=== PATIENT | female | born 1980 | race Caucasian/White ===

== ENCOUNTER 2016-09-03 08:58 | Emergency (ER) | payer MEDICAID ==
[2016-09-03 09:15] VITALS: O2SAT 98
--- NOTE | 2016-09-03 09:57 | ERPHSYRPT ---
- History of Present Illness Time Seen by Provider: 09/03/16 09:24 Source: patient, family () Patient Subjective Stated Complaint: PT REPORTS POISON OAK ON BILATERAL ARMS- SPREAD TO BLISTERS ET REDNESS TO BILATERAL [id number] HIP-DENIES FEVER-PT IS 16 Triage Nursing Assessment: BLISTERED AREAS WITH WEEPING ET DRAINAGE NOTED TO BILATERAL [id number] NOTED TO LEFT HIP WITH NO BLISTERS OR DRAINAGE NOTED AT THSI TIME-RESP EASY ET NONLABORED Physician History: CC: rash Hx: 36 y/o at 14 weeks gestation. She is a patient of Dr Li. She noted itching rash which started one week ago. It was on the arms, left face, left chest, and some on buttock. She had no new medications. The only possible known exposure was that of poison jose or oak on family clothes. The rash worsened so she went to [facility] [place] told her to use topical OTC meds as she was . She used an unknown cream from family member. The rash is now burning. It has transitioned to blistering and has some yellow crusted drainage, especially from the left arm. No fever or chills. No vaginal bleeding or discharge. She reports a small area inside left lower mouth which was sore but now resolved. She had a normal prior without complications. Quality: burning, itchy Severity: severe Allergies/Adverse Reactions: peanut Allergy (Severe, Verified 09/03/16 09:15) Home Medications: Vits W-Ca,Fe,FA(<1Mg) [] 1 each PO DAILY 09/03/16 [History] Hx Tetanus, Diphtheria Vaccination/Date Given: No Hx Influenza Vaccination/Date Given: No Hx Pneumococcal Vaccination/Date Given: No Immunizations Up to Date: Yes - Review of Systems Constitutional: No Fever, No Chills Eyes: No Symptoms Ears, Nose, & Throat: Mouth Pain (gone now) Respiratory: No Cough, No Dyspnea Cardiac: No Chest Pain Abdominal/Gastrointestinal: Nausea, No Abdominal Pain, No Vomiting Genitourinary Symptoms: Dysuria Musculoskeletal: No Back Pain, No Neck Pain, No Injury Skin: Rash Neurological: No Headache All Other Systems: Reviewed and Negative - Past Medical History Pertinent Past Medical History: No - Past Surgical History Past Surgical History: No - Social History Smoking Status: Never smoker Exposure to second hand smoke: No Drug Use: none Patient Lives Alone: No ( here with ) - Nursing Vital Signs Nursing Vital Signs: Initial Vital Signs Temperature 98.0 F 09/03/16 09:09 Pulse Rate 70 09/03/16 09:09 Respiratory Rate 20 09/03/16 09:09 Blood Pressure 103/58 09/03/16 09:09 O2 Sat by Pulse Oximetry 97 09/03/16 09:09 Pain Scale Pain Intensity 0 - Physical Exam General Appearance: alert Eye Exam: PERRL/EOMI Ears, Nose, Throat Exam: normal ENT inspection, moist mucous membranes Neck Exam: normal inspection, non-tender, supple Respiratory Exam: normal breath sounds, lungs clear Cardiovascular Exam: regular rate/rhythm Gastrointestinal/Abdomen Exam: soft, No tenderness, No distention Pelvic Exam: not done Back Exam: normal inspection Extremity Exam: other (some swelling underlying rash on left arm) Neurologic Exam: alert, oriented x 3, cooperative, sensation nml, No motor deficits Skin Exam: warm, dry, rash (blistering rash on erythematous base with some yellow crusted drainage) SpO2: 98 Oxygen Delivery: Room Air - Course Nursing assessment & vital signs reviewed: Yes Ordered Tests: Active Orders 24 hr Category Date Time Status Clean Catch Urine Specimen STAT Care 09/03/16 09:35 Active Heart Tones-ED STAT Care 09/03/16 09:37 Active IV Insertion STAT Care 09/03/16 09:35 Active CBC W DIFF Stat Lab 09/03/16 09:57 Completed CMP Stat Lab 09/03/16 09:57 Completed Erythrocyte Sedimentation Rate Stat Lab 09/03/16 09:57 Completed UA W/ MICROSCOPIC Stat Lab 09/03/16 09:57 Completed Medication Summary Discontinued Medications Generic Name Dose Route Start Last Admin Trade Name Freq PRN Reason Stop Dose Admin Clindamycin HCl 300 mg 09/03/16 10:14 09/03/16 10:29 Cleocin 150 Mg Capsule PO 09/03/16 10:15 300 mg STAT ONE Administration Methylprednisolone Sodium Succinate 125 mg 09/03/16 10:17 09/03/16 10:29 Solu-Medrol 125 Mg IV 09/03/16 10:18 125 mg STAT ONE Administration Methylprednisolone Sodium Succinate Confirm 09/03/16 10:24 Solu-Medrol 125 Mg Administered 09/03/16 10:25 Dose 125 mg .ROUTE .STK-MED ONE Lab/Rad Data: Laboratory Result Diagrams 09/03/16 09:57 09/03/16 09:57 Laboratory Results 09/03/16 09/03/16 09/03/16 Range/Units 09:57 09:57 09:57 WBC 11.1 H (4.0-10.5) K/mm3 RBC 4.05 L (4.1-5.4) M/mm3 Hgb 12.1 (12.0-16.0) gm/dl Hct 35.7 (35-47) % MCV 88.1 (78-100) fl MCH 29.8 (26-32) pg MCHC 33.9 (32-36) g/dl RDW 13.3 (11.5-14.0) % Plt Count 336 (150-450) K/mm3 MPV 9.7 H (6-9.5) fl Gran % 68.4 H (36.0-66.0) % Lymphocytes % 21.4 L (24.0-44.0) % Monocytes % 6.6 (0.0-12.0) % Eosinophils % 3.5 (0.00-5.0) % Basophils % 0.1 (0.0-0.4) % Basophils # 0.01 (0-0.4) ESR 17 (0-20) mm/hr Sodium 139 (136-145) mEq/L Potassium 3.3 L (3.5-5.1) mEq/L Chloride 103 (98-107) mEq/L Carbon Dioxide 22.4 (21-32) mEq/L Anion Gap 17.2 H (5-15) MEQ/L BUN 6 L (9-20) mg/dL Creatinine 0.70 (0.55-1.30) mg/dl Estimated GFR > 60 ML/MIN Glucose 131 H (70-110) MG/DL Calcium 8.9 (8.5-10.1) mg/dL Total Bilirubin 0.20 (0.2-1.0) mg/dL AST 20 (15-37) U/L ALT 16 (12-78) U/L Alkaline Phosphatase 50 (46-116) U/L Serum Total Protein 6.4 (6.4-8.2) gm/dL Albumin 3.0 L (3.4-5.0) g/dL Ur Collection Type Urine Color (YELLOW) Urine Appearance (CLEAR) Urine pH (5-6) Ur Specific Hamilton (1.005-1.025) Urine Protein (Negative) Urine Ketones (NEGATIVE) Urine Blood (0-5) Mayco/ul Urine Nitrite (NEGATIVE) Urine Bilirubin (NEGATIVE) Urine Urobilinogen (0-1) mg/dL Ur Leukocyte Esterase (NEGATIVE) Urine Microscopic RBC (0-2) /HPF Urine Microscopic WBC (0-5) /HPF Ur Epithelial Cells (FEW) /HPF Urine Bacteria (NEGATIVE) /HPF Urine Mucus (NEGATIVE) /HPF Urine Glucose (NEGATIVE) mg/dL Specimen Received 09/03/16 Range/Units 09:57 WBC (4.0-10.5) K/mm3 RBC (4.1-5.4) M/mm3 Hgb (12.0-16.0) gm/dl Hct (35-47) % MCV (78-100) fl MCH (26-32) pg MCHC (32-36) g/dl RDW (11.5-14.0) % Plt Count (150-450) K/mm3 MPV (6-9.5) fl Gran % (36.0-66.0) % Lymphocytes % (24.0-44.0) % Monocytes % (0.0-12.0) % Eosinophils % (0.00-5.0) % Basophils % (0.0-0.4) % Basophils # (0-0.4) ESR (0-20) mm/hr Sodium (136-145) mEq/L Potassium (3.5-5.1) mEq/L Chloride (98-107) mEq/L Carbon Dioxide (21-32) mEq/L Anion Gap (5-15) MEQ/L BUN (9-20) mg/dL Creatinine (0.55-1.30) mg/dl Estimated GFR ML/MIN Glucose (70-110) MG/DL Calcium (8.5-10.1) mg/dL Total Bilirubin (0.2-1.0) mg/dL AST (15-37) U/L ALT (12-78) U/L Alkaline Phosphatase (46-116) U/L Serum Total Protein (6.4-8.2) gm/dL Albumin (3.4-5.0) g/dL Ur Collection Type CLEAN CATCH Urine Color YELLOW (YELLOW) Urine Appearance CLEAR (CLEAR) Urine pH 6.0 (5-6) Ur Specific Hamilton 1.010 (1.005-1.025) Urine Protein NEGATIVE (Negative) Urine Ketones NEGATIVE (NEGATIVE) Urine Blood 50 (0-5) Mayco/ul Urine Nitrite NEGATIVE (NEGATIVE) Urine Bilirubin NEGATIVE (NEGATIVE) Urine Urobilinogen NORMAL (0-1) mg/dL Ur Leukocyte Esterase NEGATIVE (NEGATIVE) Urine Microscopic RBC 2-5 (0-2) /HPF Urine Microscopic WBC 0-2 (0-5) /HPF Ur Epithelial Cells FEW (FEW) /HPF Urine Bacteria FEW (NEGATIVE) /HPF Urine Mucus SLIGHT (NEGATIVE) /HPF Urine Glucose NEGATIVE (NEGATIVE) mg/dL Specimen Received 09/03 1018 - Progress Progress Note: 09/03/16 09:57 Asked patient about tetanus vaccination history. She has not been vaccinated. Advised tetanus vaccine as she is at risk with these blistering wounds. She states she does not believe in vaccines. She understands risks of tetanus but declines vaccine. 09/03/16 10:[address] Mims who evalauted pt and agrees likely contact dermatitis , rather severe. Will give IV solu medrol, po prednisone, and abtx. Plan discussed with pt who agrees. Counseled pt/family regarding: lab results, diagnosis, need for follow-up - Departure Time of Disposition: 10:40 Departure Disposition: Home Clinical Impression: Contact dermatitis Qualifiers: Contact dermatitis type: irritant Contact dermatitis trigger: non-food plants Qualified Code(s): L24.7 - Irritant contact dermatitis due to plants, except food Condition: Fair Critical Care Time: No Referrals: RM LI [Primary Care Provider] - Instructions: Contact Dermatitis Additional Instructions: Rx prednisone. Aveeno oatmeal cool compresses. Follow up this week with Dr Li. Return for problems or concerns. RASH 1. Depending on the reason for the rash, the instructions will differ. 2. If an antibiotic has been prescribed, take it as directed until gone. 3. If anti-fungals or shampoos are prescribed, use only as directed and follow specific instructions on package container. 4. Avoid hot showers/baths, as this may increase itching. 5. Calamine lotion or Aveeno Oatmeal baths may help itching. 6. See your family physician if these signs or symptoms persist for more than four days. Prescriptions: Clindamycin HCl 1 cap PO QID #28 capsule Prednisone 10 mg [Deltasone 10 mg] 0 mg PO UD #30 tablet
[2016-09-03 09:59] LABS: BASOPHIL % 0.1 % (0.0-0.4); Eosinophil % 3.5 % (0.00-5.0); Granulocytes % 68.4 % (36.0-66.0); Lymphocytes % 21.4 % (24.0-44.0); Mean Cell Volume 88.1 fl (78-100); Mean Platelet Volume 9.7 fl (6-9.5); Monocytes % 6.6 % (0.0-12.0); Platelet Count 336 K/mm3 (150-450); Red Blood Count 4.05 M/mm3 (4.1-5.4); Red Cell Distribution Width 13.3 % (11.5-14.0); White Blood Count 11.1 K/mm3 (4.0-10.5)
[2016-09-03 10:01] LABS: Mean Corpuscular Hemoglobin 29.8 pg (26-32)
[2016-09-03] MEDS ORDERED: CLEOCIN 150 MG CAPSULE PO ONE (10:14)
[2016-09-03] MEDS ORDERED: solu-MEDROL 125 MG IV ONE (10:17)
[2016-09-03 10:18] LABS: Bilirubin NEGATIVE (NEGATIVE); Blood 50 Ery/ul (0-5); COMPLETE URINE MICROSCOPIC? YES; Collection Type CLEAN CATCH; Glucose NEGATIVE (NEGATIVE); Leukocyte Esterase NEGATIVE (NEGATIVE)
[2016-09-03 10:23] VITALS: BP 110/60; PULSE 67
[2016-09-03] MEDS ORDERED: solu-MEDROL 125 MG ONE (10:24)
[2016-09-03 10:25] LABS: ALKALINE PHOSPHATASE 50 U/L (46-116); ANION GAP 17.2 MEQ/L (5-15); BLOOD UREA NITROGEN 6 mg/dL (9-20); CHLORIDE 103 mEq/L (98-107); Carbon Dioxide 22.4 mEq/L (21-32); Glucose 131 MG/DL (70-110); Potassium 3.3 mEq/L (3.5-5.1); SGOT/AST 20 U/L (15-37); SGPT/ALT 16 U/L (12-78); SODIUM 139 mEq/L (136-145); Total Protein 6.4 gm/dL (6.4-8.2)
[2016-09-03 10:27] LABS: ADD URINE CULTURE? NO (NO); Bacteria FEW /HPF (NEGATIVE); Epithelial Cells FEW /HPF (FEW); Mucus SLIGHT /HPF (NEGATIVE); WBC 0-2 /HPF (0-5)
== END 2016-09-03 10:54 | disposition home or self-care (01) ==
LOC: ED 08:58
DX: L24.7 Irritant contact dermatitis due to plants, except food (principal); Z33.1 Pregnant state, incidental
CPT/HCPCS: 36000; 36415; 80053; 81000; 85025; 85652; 96374; 99284; J2930; A9270-GY

== ENCOUNTER 2017-03-06 08:30 | Inpatient (IN) | payer MEDICAID ==
[2017-03-06] MEDS ORDERED: BRETHINE 1 MG/ML SQ PRN (18:16)
[2017-03-06] MEDS ORDERED: STADOL 2 MG IV PRN (18:22)
[2017-03-06] MEDS ORDERED: Phenergan 25 MG INJ IV PRN (18:22)
[2017-03-06] MEDS ORDERED: Zofran 4 MG/2 ML VIAL IV PRN (18:22)
[2017-03-06] MEDS ORDERED: Nubain 10 MG/ML IV PRN (18:22)
[2017-03-06] MEDS ORDERED: Cervidil 10 MG VAG SCH (18:30)
[2017-03-06 19:08] LABS: Amphetamine,Urine NEG. (NEGATIVE); Barbiturate,Urine NEG. (NEGATIVE); Benzodiazepine,Urine NEG. (NEGATIVE); Cocaine,Urine NEG. (NEGATIVE); Methadone,Urine NEG. (NEGATIVE); Opiate,Urine NEG. (NEGATIVE); PCP,Urine NEG. (NEGATIVE); THC,Urine NEG. (NEGATIVE)
[2017-03-06 19:24] LABS: Granulocyte Absolute (ANC) 7.85 (1.4-6.9); Hematocrit 33.9 % (35-47); Hemoglobin 10.8 gm/dl (12.0-16.0); Mean Cell Volume 89.7 fl (78-100); Mean Corpuscular Hgb Concent. 31.9 g/dl (32-36); Mean Platelet Volume 11.1 fl (6-9.5); Platelet Count 337 K/mm3 (150-450); Red Blood Count 3.78 M/mm3 (4.1-5.4); Red Cell Distribution Width 13.8 % (11.5-14.0); White Blood Count 11.3 K/mm3 (4.0-10.5)
[2017-03-06 19:30] LABS: Mean Corpuscular Hemoglobin 28.5 pg (26-32)
[2017-03-06 23:45] LABS: BAND 4 % (0.0-2.0); Neutrophils 75 % (36.0-66.0); Total Cells Counted 100
[2017-03-06 23:46] LABS: Lymphocytes 15 % (24-44); Monocyte 6 % (0.0-12.0); Platelet Estimate NORMAL (NORMAL)
[2017-03-07] MEDS ORDERED: PITOCIN 30 UNITS/ LR 500 ML 500 ML IV SCH ×2 (08:30→10:00)
[2017-03-07] MEDS: Lactated Ringers 1,000 ML IV SCH ×2 (08:44→11:43)
[2017-03-07] MEDS ORDERED: OB EPIDURAL NAROPIN/SUFENTANIL IN NACL EPIDURAL PRN (09:23)
[2017-03-07] MEDS ORDERED: Lactated Ringers 1,000 ML IV ONE (09:23)
[2017-03-07] MEDS ORDERED: XYLOCAINE 1% HCL 20 ML MDV IJ ONE (10:00)
[2017-03-07] MEDS ORDERED: XYLOCAINE 1% HCL 20 ML MDV ONE (15:07)
[2017-03-07] MEDS ORDERED: Ambien 10 MG PO PRN (15:51)
[2017-03-07] MEDS ORDERED: Restoril 15 MG PO PRN (15:51)
[2017-03-07] MEDS ORDERED: Dulcolax 10 MG SUPP PR PRN (15:51)
[2017-03-07] MEDS ORDERED: TUCKS TP PRN (15:51)
[2017-03-07] MEDS ORDERED: NORCO 5/325 MG PO PRN (15:51)
[2017-03-07] MEDS ORDERED: LANSINOH 40 GM TOP PRN (15:51)
[2017-03-07] MEDS ORDERED: Dermoplast Spray TP PRN (15:51)
[2017-03-07] MEDS ORDERED: CORTISONE 1% CREAM TP PRN (15:51)
[2017-03-07] MEDS: Colace 100 MG PO SCH (22:20)
[2017-03-08] MEDS: TYLENOL EXTRA STRENGTH 500 MG PO PRN ×3 (00:35→16:21)
[2017-03-08] MEDS ORDERED: TYLENOL EXTRA STRENGTH 500 MG PO PRN (05:23)
[2017-03-08 05:33] LABS: BASOPHIL % 0.1 % (0.0-0.4); Basophil (Absolute #) 0.01 (0-0.4); Eosinophil % 0.8 % (0.00-5.0); Eosinophil (Absolute #) 0.11 (0-0.5); Granulocyte Absolute (ANC) 9.01 (1.4-6.9); Granulocytes % 67.7 % (36.0-66.0); Hematocrit 31.6 % (35-47); Hemoglobin 10.1 gm/dl (12.0-16.0); Lymphocyte (Absolute #) 2.65 (1.0-4.6); Lymphocytes % 19.9 % (24.0-44.0); Mean Cell Volume 89.8 fl (78-100); Mean Platelet Volume 10.5 fl (6-9.5); Monocyte (Absolute #) 1.53 (0.0-1.3); Monocytes % 11.5 % (0.0-12.0); Platelet Count 248 K/mm3 (150-450); Red Blood Count 3.52 M/mm3 (4.1-5.4); Red Cell Distribution Width 13.9 % (11.5-14.0); White Blood Count 13.3 K/mm3 (4.0-10.5)
[2017-03-08 05:34] LABS: Mean Corpuscular Hemoglobin 28.6 pg (26-32)
[2017-03-08 06:14] LABS: BAND 1 % (0.0-2.0); Lymphocytes 31 % (24-44); Monocyte 6 % (0.0-12.0); Neutrophils 62 % (36.0-66.0); Total Cells Counted 100
[2017-03-08 06:15] LABS: Platelet Estimate NORMAL (NORMAL)
[2017-03-08] MEDS: Colace 100 MG PO SCH (11:19)
[2017-03-08] MEDS: FERREX 150 PO SCH (11:19)
[2017-03-08] MEDS ORDERED: Ephedrine Sulfate 50 MG/ML IV PRN (12:15)
[2017-03-08] MEDS: MOTRIN 400 MG PO PRN (23:28)
[2017-03-09] MEDS: Colace 100 MG PO SCH ×2 (05:21→09:56)
--- NOTE | 2017-03-09 08:32 | PCM.DS ---
Discharge Summary Date of Admission: 03/07/17 08:30 Admitting Physician: RM ELLISON Consults: Consults on Case 03/07/17 09:24 Notify Anesthesia Provider PRN Primary Care Provider: RM ELLISON Allergies Allergies peanut Allergy (Severe, Verified 09/03/16 09:15) Bleach (Sodium Hypochlorite) Allergy (Verified 03/08/17 15:25) Hospital Summary - Hospital Course Hospital Course: Mom was post dates and came in for IOL. She progressed quickly after AROM and delivered a healthy baby boy; for full details see delivery note. She did have a short second degree midline vaginal laceration. She has recovered well postoperatively. . - Vitals & Intake/Output Vital Signs: Vital Signs Temperature 97.9 F 03/09/17 03:00 Pulse Rate 66 03/09/17 03:00 Respiratory Rate 18 03/09/17 03:00 Blood Pressure 90/51 03/09/17 03:00 O2 Sat by Pulse Oximetry Intake & Output: Intake & Output 03/06/17 03/07/17 03/08/17 03/09/17 11:59 11:59 11:59 11:59 Intake Total 2540 Output Total 250 Balance 2290 Weight 72.575 kg - Lab Result Diagrams: 03/08/17 05:10 Lab Results-Last 24 Hrs: Lab Results-Last 24 Hours 03/06/17 Range/Units 18:40 HIV Ag/Ab Interpret See Result Note: HIV 1&2 Antigen & Ab Non Reactive (Non Reactive) Micro Results-Entire Visit: Microbiology 03/07/17 11:53 Urine Culture - Preliminary Catherized NO GROWTH TO DATE Discharge Exam General Appearance: no apparent distress, alert Neurologic Exam: oriented x 3, cooperative Skin Exam: normal color, warm, dry, No rash Eye Exam: eyes nml inspection Ears, Nose, Throat Exam: moist mucous membranes Respiratory Exam: normal breath sounds, lungs clear, No crackles/rales, No rhonchi, No wheezing Cardiovascular Exam: regular rate/rhythm, normal heart sounds, No murmur Gastrointestinal/Abdomen Exam: soft, other (fundus firm under umbilicus) Extremity Exam: No pedal edema, No swelling Final Diagnosis/Problem List - Final Discharge Diagnosis/Problem (1) Vaginal delivery Current Visit: Yes Status: Acute Assessment & Plan: PPD #2, doing great, home today at 48h PP. (2) Anemia Current Visit: Yes Status: Acute Assessment & Plan: Mild, will give 1 mo of iron to take at home. - Discharge Disposition: Home, Self-Care Condition: Good Prescriptions: New Docusate Sodium 100 mg [Colace 100 MG] 100 mg PO BID PRN #60 capsule PRN Reason: Constipation Ferrous Sulfate 325 mg [Feosol 325 mg] 325 mg PO DAILY #30 tablet Ibuprofen 800 mg PO TID PRN #35 tablet PRN Reason: Pain Continue Vits W-Ca,Fe,FA(<1Mg) [] 1 each PO DAILY Magnesium Oxide [Mag-Oxide] 200 mg PO DAILY Follow up with: RM ELLISON [Primary Care Provider] - 1 Week
[2017-03-09] MEDS: FERREX 150 PO SCH (09:49)
[2017-03-09] MEDS: MOTRIN 400 MG PO PRN ×2 (09:49→18:37)
[2017-03-09 19:21] VITALS: BP 97/57; PULSE 72
== END 2017-03-09 18:55 | disposition home or self-care (01) | DRG 775 ==
LOC: OB 08:30 → OBSVTOIN 03-07 08:30
PROVIDERS: ADMIT Family Medicine; ATTEND Family Medicine
PROC: 10E0XZZ Delivery of Products of Conception, External Approach (ICD-10-PCS; principal; 2017-03-07)
DX: O70.1 Second degree perineal laceration during delivery (principal); O80 Encounter for full-term uncomplicated delivery; Z3A.40 40 weeks gestation of pregnancy; Z37.0 Single live birth; D64.9 Anemia, unspecified
CPT/HCPCS: 01967; 36415; 80307; 85025; 86592; 86701; 86702; 87086; 87389; G0378; J2590; J2795; A9270-GY